=== PATIENT | male | born 1985 | race Caucasian/White ===

== ENCOUNTER 2019-03-03 16:34 | Emergency (ER) | payer OTHER ==
[~2019-03-03] VITALS: Ht 182.9 cm; Wt 79.5 kg
[2019-03-03 16:45] VITALS: BP 149/96
[2019-03-03] MEDS ORDERED: diphenhydrAMINE 25mg capsule PO ONE (17:05)
[2019-03-03] MEDS ORDERED: triamcinolone acetonide 40mg/ml inj IM ONE (17:05)
[2019-03-03] MEDS ORDERED: DIPH25CA83 PO (17:09)
[2019-03-03] MEDS ORDERED: TRIA15CR61 TOP (17:09)
[2019-03-03] MEDS ORDERED: PRED20TA PO (18:22)
== END 2019-03-03 18:29 | disposition home or self-care (01) ==
LOC: ER 16:34
DX: L23.7 Allergic contact dermatitis due to plants, except food (principal); F17.200 Nicotine dependence, unspecified, uncomplicated; Z79.899 Other long term (current) drug therapy
CPT/HCPCS: 96372; 99283; J3301; Q0163

== ENCOUNTER 2022-12-07 05:45 | Emergency (ER) | payer OTHER, MEDICAID ==
[~2022-12-07] VITALS: Ht 182.9 cm; Wt 71.8 kg
[~2022-12-07 05:45] MED LIST: DIPH25CA83 PO
[2022-12-07 05:50] VITALS: TEMP 98.6
[2022-12-07 06:22] LABS: BASOPHILS % (AUTO) 0.4 % (0-1); EOSINOPHILS # (AUTO) 0.1 X10'3 (0-0.9); EOSINOPHILS % (AUTO) 1.8 % (0-6); HEMOGLOBIN 14.3 g/dl (14.0-17.9); LYMPHOCYTES # (AUTO) 2.7 X10'3 (1.1-4.8); LYMPHOCYTES % (AUTO) 32.3 % (21-51); MEAN CORPUSCULAR HEMOGLOBIN 31.1 PG (27.0-31.0); MEAN CORPUSCULAR HGB CONC 34.1 g/dL (33.0-36.5); MEAN CORPUSCULAR VOLUME 91.3 FL (78-98); MEAN PLATELET VOLUME 6.6 FL (7.4-10.4); MONOCYTES # (AUTO) 0.7 X10'3 (0-0.9); MONOCYTES % (AUTO) 8.5 % (2-12); NEUTROPHILS # (AUTO) 4.8 X10'3 (1.8-7.7); PLATELET COUNT 277 X10'3 (140-440); RED CELL DISTRIBUTION WIDTH 12.9 % (11.5-14.5); WHITE BLOOD COUNT 8.5 X10'3 (4.5-11.0)
[2022-12-07 06:24] LABS: ALANINE AMINOTRANSFERASE 22 U/L (12-78); ALBUMIN/GLOBULIN RATIO 1.2 (1.1-1.5); ALKALINE PHOSPHATASE 97 IU/L (46-116); ANION GAP 5 (8-16); ASPARTATE AMINO TRANSFERASE 19 U/L (10-37); BILIRUBIN,TOTAL 0.2 MG/DL (0.1-1.0); BLOOD UREA NITROGEN 17 MG/DL (7-18); BUN/CREATININE RATIO 18.5 (10.0-20.0); CHLORIDE 104 MMOL/L (99-107); CREATININE 0.92 MG/DL (0.60-1.10); GLUCOSE 136 MG/DL (70-104); POTASSIUM 3.8 MMOL/L (3.5-5.1); SODIUM 139 MMOL/L (135-145); TOTAL CARBON DIOXIDE 29.9 MMOL/L (24-32); TOTAL PROTEIN 7.4 G/DL (6.4-8.2); eCRCL 112 ML/MIN; eGFR > 90 ML/MIN
[2022-12-07 06:31] LABS: PRO BRAIN NATRIURETIC PEPTIDE < 30 PG/ML (0-125)
[2022-12-07 08:15] VITALS: BP 110/63; PULSE 53; RESP 16
[2022-12-07 08:35] VITALS: O2SAT 99
== END 2022-12-07 09:21 | disposition home or self-care (01) ==
LOC: EDUNIT# 05:45 → ER 05:46
DX: K21.9 Gastro-esophageal reflux disease without esophagitis (principal); K29.70 Gastritis, unspecified, without bleeding; R07.89 Other chest pain; Z72.89 Other problems related to lifestyle; Z79.899 Other long term (current) drug therapy
CPT/HCPCS: 36415; 71045; 80053; 83880; 84484; 85025; 93005; 99285